=== PATIENT | female | born 1990 | race Caucasian/White ===

== ENCOUNTER → 2016-12-22 | Outpatient (CLI) | payer BC | END | disposition home or self-care (01) | LOC: C.PAPS 15:05 | PROVIDERS: ATTEND Obstetrics & Gynecology | DX: Z01.419 Encounter for gynecological examination (general) (routine) without abnormal findings (principal) ==

== ENCOUNTER → 2016-12-25 | Outpatient (CLI) | payer BC ==
[2016-12-25 10:02] LABS: CALCULATED INSULIN SENSITIVITY 0.317; GLUCOSE LOG 1.9542; INSULIN FASTING 15.8 mU/L (3-25); INSULIN LOG 1.1987; PROLACTIN 17.53 ng/mL; THYROXINE (T4) 8.6 mcg/dl (4.5-10.9)
[2016-12-25 10:03] LABS: THYROID STIMULATING HORMONE 2.27 uIu/ml (0.300-4.500)
== END | disposition home or self-care (01) ==
LOC: C.LAB1850 08:11
PROVIDERS: ATTEND Obstetrics & Gynecology
DX: N91.1 Secondary amenorrhea (principal)